=== PATIENT | male | born 1985 | race Caucasian/White ===

== ENCOUNTER 2020-06-02 12:36 | Emergency (ER) | payer OTHER ==
[~2020-06-02] VITALS: Ht 190.5 cm; Wt 122.5 kg
[2020-06-02 12:40] VITALS: BP 137/88
--- NOTE | 2020-06-02 12:40 | NUR ---
ED Nurse Note: Patient from home and brought in by RA [id number] due to auditory hallucinations startesd around 2am this morning. Pt takes seroquel bur ran out of clozapine x 1 week. Denies SI. AAO x4, ambulatory with non labored breathing. Pt is noted to be diaphoretic. HR 134.
--- NOTE | 2020-06-02 12:40 | NUR ---
ED Nurse Note: Belongings placed on psych locker #2.
--- NOTE | 2020-06-02 12:55 | Emergency Room Report ---
History of Present Illness General Chief Complaint: Behavioral Complaint Source: Patient (Brendon Rosado MD) Present Illness HPI Disclaimer: Please note that this report is being documented using [employer] technology. This can lead to erroneous entry secondary to incorrect i nterpretation by the dictating instrument. HPI: 34-year-old male presents for evaluation of auditory hallucination. He has a history of schizoaffective disorder and was on clozapine for several weeks after recent stay in psychiatric hospital. He ran out 5 days ago. Supposed get a new prescription tomorrow. He is hearing loud voices talking to themselves telling him bad things which he will not elaborate on. Denies suicidality, homicidality. Has not attempted to harm himself or others. Denies other i ngestions. PMH: Schizoaffective disorder PSH: Reviewed Allergies: Reviewed Social Hx: Reviewed (Brendon Rosado MD) Allergies: Coded Allergies: No Known Allergies (Unverified , 06/02/20) COVID-19 Screening Contact w/high risk pt: No Experienced COVID-19 symptoms?: No COVID-19 Testing performed JOB PRINTER: No (Brendon Rosado MD) Nursing Documentation-PMH Past Medical History: No History, Except For History Of Psychiatric Problem: Yes (Brendon Rosado MD) Review of Systems All Other Systems: negative except mentioned in HPI (Brendon Rosado MD) Physical Exam Vital Signs Date Time Temp Pulse Resp B/P (MAP) Pulse Ox O2 Delivery O2 Flow Rate FiO2 06/02/20 12:30 98.2 140 22 110/90 (97) 98 Room Air General: Awake and alert, anxious appearing HEENT: NC/AT. EOMI. Cardiovascular: Tachycardic. S1 and S2 normal. No murmur appreciated Resp: Normal work of breathing. No cough, wheezing or crackles appreciated Abdomen: Abdomen is soft, nondistended. Nontender Skin: Intact. No abrasions, laceration or rash over the exposed skin MSK: Normal tone and bulk. Moving all extremities. No obvious deformity. Neuro: Awake and alert. Mentating appropriately. Pleasant and cooperative. Reports auditory hallucinations (Brendon Rosado MD) Medical Decision Making Diagnostic Impression: Primary Impression: Substance abuse ER Course Is a 34-year-old male history of schizoaffective disorder who ran out of clozapine 5 days ago presenting for worsening auditory hallucinations. Denies SI/HI. Home medications provided. Patient's urine tox returned positive for amphetamines which he admits using. Labs are otherwise within normal limits. Patient is requesting transfer to a psychiatric facility. He is medically cleared for psych eval. Will arrange placement. Laboratory Tests Test 06/02/20 12:50 06/02/20 13:35 White Blood Count 7.3 K/UL (4.8-10.8) Red Blood Count 5.20 M/UL (4.70-6.10) Hemoglobin 15.9 G/DL (14.2-18.0) Hematocrit 45.6 % (42.0-52.0) Mean Corpuscular Volume 88 FL (80-99) Mean Corpuscular Hemoglobin 30.5 PG (27.0-31.0) Mean Corpuscular Hemoglobin Concent 34.8 G/DL (32.0-36.0) Red Cell Distribution Width 12.3 % (11.6-14.8) Platelet Count 255 K/UL (150-450) Mean Platelet Volume 7.6 FL (6.5-10.1) Neutrophils (%) (Auto) 76.8 % (45.0-75.0) H Lymphocytes (%) (Auto) 16.8 % (20.0-45.0) L Monocytes (%) (Auto) 5.0 % (1.0-10.0) Eosinophils (%) (Auto) 0.3 % (0.0-3.0) Basophils (%) (Auto) 1.0 % (0.0-2.0) Sodium Level 142 MMOL/L (136-145) Potassium Level 3.9 MMOL/L (3.5-5.1) Chloride Level 103 MMOL/L (98-107) Carbon Dioxide Level 23 MMOL/L (21-32) Anion Gap 16 mmol/L (5-15) H Blood Urea Nitrogen 12 mg/dL (7-18) Creatinine 1.1 MG/DL (0.55-1.30) Estimated Glomerular Filtration Rate > 60 mL/min (>60) Glucose Level 145 MG/DL (74-106) H Calcium Level 9.1 MG/DL (8.5-10.1) Total Bilirubin 0.9 MG/DL (0.2-1.0) Aspartate Amino Transferase (AST) 48 U/L (15-37) H Alanine Aminotransferase (ALT) 51 U/L (12-78) Alkaline Phosphatase 104 U/L (46-116) Total Protein 7.5 G/DL (6.4-8.2) Albumin 4.1 G/DL (3.4-5.0) Globulin 3.4 g/dL Albumin/Globulin Ratio 1.2 (1.0-2.7) Salicylates Level 1.7 ug/mL (2.8-20) L Acetaminophen Level < 2 MCG/ML (10-30) L Serum Alcohol < 3 mg/dL Urine Color Yellow Urine Appearance Clear Urine pH 7 (4.5-8.0) Urine Specific [place] 1.015 (1.005-1.035) Urine Protein Negative (NEGATIVE) Urine Glucose (UA) Negative (NEGATIVE) Urine Ketones 1+ (NEGATIVE) H Urine Blood Negative (NEGATIVE) Urine Nitrite Negative (NEGATIVE) Urine Bilirubin Negative (NEGATIVE) Urine Urobilinogen Normal MG/DL (0.0-1.0) Urine Leukocyte Esterase Negative (NEGATIVE) Urine Opiates Screen Negative (NEGATIVE) Urine Barbiturates Screen Negative (NEGATIVE) Phencyclidine (PCP) Screen Negative (NEGATIVE) Urine Amphetamines Screen Positive (NEGATIVE) H Urine Benzodiazepines Screen Negative (NEGATIVE) Urine Cocaine Screen Negative (NEGATIVE) Urine Marijuana (THC) Screen Negative (NEGATIVE) Microbiology Date/Time Source Procedure Growth Status 06/02/20 12:48 Nasopharynx SARS-CoV-2 RdRp Gene Assay - Final Complete (Brendon Rosado MD) ER Course Patient was endorsed me by Dr. Rosado. Patient had been medically cleared and was pending psychiatric placement. Laboratory testing did show some evidence of substance abuse. Patient was medically cleared and was accepted at [place] for voluntary psychiatric evaluation. Labs Test 06/02/20 12:50 06/02/20 13:35 White Blood Count 7.3 K/UL (4.8-10.8) Red Blood Count 5.20 M/UL (4.70-6.10) Hemoglobin 15.9 G/DL (14.2-18.0) Hematocrit 45.6 % (42.0-52.0) Mean Corpuscular Volume 88 FL (80-99) Mean Corpuscular Hemoglobin 30.5 PG (27.0-31.0) Mean Corpuscular Hemoglobin Concent 34.8 G/DL (32.0-36.0) Red Cell Distribution Width 12.3 % (11.6-14.8) Platelet Count 255 K/UL (150-450) Mean Platelet Volume 7.6 FL (6.5-10.1) Neutrophils (%) (Auto) 76.8 % (45.0-75.0) Lymphocytes (%) (Auto) 16.8 % (20.0-45.0) Monocytes (%) (Auto) 5.0 % (1.0-10.0) Eosinophils (%) (Auto) 0.3 % (0.0-3.0) Basophils (%) (Auto) 1.0 % (0.0-2.0) Sodium Level 142 MMOL/L (136-145) Potassium Level 3.9 MMOL/L (3.5-5.1) Chloride Level 103 MMOL/L (98-107) Carbon Dioxide Level 23 MMOL/L (21-32) Anion Gap 16 mmol/L (5-15) Blood Urea Nitrogen 12 mg/dL (7-18) Creatinine 1.1 MG/DL (0.55-1.30) Estimat Glomerular Filtration Rate > 60 mL/min (>60) Glucose Level 145 MG/DL (74-106) Calcium Level 9.1 MG/DL (8.5-10.1) Total Bilirubin 0.9 MG/DL (0.2-1.0) Aspartate Amino Transf (AST/SGOT) 48 U/L (15-37) Alanine Aminotransferase (ALT/SGPT) 51 U/L (12-78) Alkaline Phosphatase 104 U/L (46-116) Total Protein 7.5 G/DL (6.4-8.2) Albumin 4.1 G/DL (3.4-5.0) Globulin 3.4 g/dL Albumin/Globulin Ratio 1.2 (1.0-2.7) Salicylates Level 1.7 ug/mL (2.8-20) Acetaminophen Level < 2 MCG/ML (10-30) Serum Alcohol < 3 mg/dL Urine Color Yellow Urine Appearance Clear Urine pH 7 (4.5-8.0) Urine Specific [place] 1.015 (1.005-1.035) Urine Protein Negative (NEGATIVE) Urine Glucose (UA) Negative (NEGATIVE) Urine Ketones 1+ (NEGATIVE) Urine Blood Negative (NEGATIVE) Urine Nitrite Negative (NEGATIVE) Urine Bilirubin Negative (NEGATIVE) Urine Urobilinogen Normal MG/DL (0.0-1.0) Urine Leukocyte Esterase Negative (NEGATIVE) Urine Opiates Screen Negative (NEGATIVE) Urine Barbiturates Screen Negative (NEGATIVE) Phencyclidine (PCP) Screen Negative (NEGATIVE) Urine Amphetamines Screen Positive (NEGATIVE) Urine Benzodiazepines Screen Negative (NEGATIVE) Urine Cocaine Screen Negative (NEGATIVE) Urine Marijuana (THC) Screen Negative (NEGATIVE) (Ganga Bush MD) Last Vital Signs Date Time Temp Pulse Resp B/P (MAP) Pulse Ox O2 Delivery O2 Flow Rate FiO2 06/02/20 12:30 98.2 140 22 110/90 (97) 98 Room Air (Brendon Rosado MD) Status: improved (Ganga Bush MD) Disposition: PSYCH HOSP/UNIT Condition: Stable Brendon Rosado MD Jun 02, 2020 12:55 Ganga Bush MD Jun 02, 2020 20:38
--- NOTE | 2020-06-02 13:35 | NUR ---
ED Nurse Note: Collected urine then sent.
[2020-06-02 13:37] LABS: EOSINOPHILS % (AUTO) 0.3 % (0.0-3.0); HEMATOCRIT 45.6 % (42.0-52.0); HEMOGLOBIN 15.9 G/DL (14.2-18.0); LYMPHOCYTES % (AUTO) 16.8 % (20.0-45.0); MEAN CORPUSCULAR VOLUME 88 FL (80-99); NEUTROPHILS % (AUTO) 76.8 % (45.0-75.0); PLATELET COUNT 255 K/UL (150-450); RED CELL DISTRIBUTION WIDTH 12.3 % (11.6-14.8); WHITE BLOOD COUNT 7.3 K/UL (4.8-10.8)
[2020-06-02 13:45] LABS: ANION GAP 16 mmol/L (5-15); BLOOD UREA NITROGEN 12 mg/dL (7-18); CALCIUM 9.1 MG/DL (8.5-10.1); CARBON DIOXIDE 23 MMOL/L (21-32); CHLORIDE 103 MMOL/L (98-107); CREATININE 1.1 MG/DL (0.55-1.30); POTASSIUM 3.9 MMOL/L (3.5-5.1); SODIUM 142 MMOL/L (136-145)
[2020-06-02 13:49] LABS: ALANINE AMINOTRANSFERASE 51 U/L (12-78); ALBUMIN 4.1 G/DL (3.4-5.0); ALBUMIN/GLOBULIN RATIO 1.2 (1.0-2.7); ALKALINE PHOSPHATASE 104 U/L (46-116); ASPARTATE AMINO TRANSFERASE 48 U/L (15-37); BILIRUBIN,TOTAL 0.9 MG/DL (0.2-1.0)
[2020-06-02] MEDS ORDERED: LORazepam Inj 2mg/ml 1ml IV ONE (14:15)
[2020-06-02 15:15] VITALS: BP 135/82
--- NOTE | 2020-06-02 15:25 | NUR ---
HAND-OFF: Report given to Patrice REA.
--- NOTE | 2020-06-02 15:25 | NUR ---
ED Nurse Note: Received report from Dee REA. Patient sitting in bed, AxO x 4, calm and cooperative, states he feels anxious. Patient has flat affect, no s/s of acute distress.
--- NOTE | 2020-06-02 16:47 | NUR ---
ED Nurse Note: ASSESS THE PT. REGARDING HIS AUDITORY HALLUCINATIONS. PER PT. HE THINKS THAT WHEN PEOPLE LAUGH AROUND HIM, HE THINKS IT INVOLVES HIM. PT. ALSO MENTIONED THAT THE VOICES ARE SAYING THAT HE SHOULD BE BETTER OFF IF NOT THE PEOPLE AROUND HIM ARE GOING TO KILL HIM
[2020-06-02 17:10] VITALS: BP 131/81
--- NOTE | 2020-06-02 18:05 | NUR ---
ED Nurse Note: Patient appears anxious, states he hears people talking about him and states he is paranoid. Patient requested Ativan d/t feeling agitated. Informed ERMD.
--- NOTE | 2020-06-02 18:20 | NUR ---
ED Nurse Note: Verbal order received from ERMD for Ativan IV 1mg once
[2020-06-02] MEDS ORDERED: LORazepam Inj 2mg/ml 1ml ONE (18:21)
--- NOTE | 2020-06-02 18:25 | NUR ---
ED Nurse Note: Patient refused IV Ativan, states he prefers oral route. Wasted remaining 1 mg Ativan IV lovely/ Nicolette REA
[2020-06-02] MEDS ORDERED: LORazepam 1mg tab ORAL ONE (18:30)
--- NOTE | 2020-06-02 19:47 | NUR ---
HAND-OFF: Report given to Rachel REA at [facility].
[2020-06-02 20:16] LABS: APPEARANCE,URINE CLEAR; BILIRUBIN, URINE NEGATIVE (NEGATIVE); COLOR,URINE YELLOW; GLUCOSE, URINE (UA) NEGATIVE (NEGATIVE); KETONES,URINE 1+ (NEGATIVE); LEUKOCYTE ESTERASE ,URINE NEGATIVE (NEGATIVE); NITRITE,URINE NEGATIVE (NEGATIVE); PH,URINE 7 (4.5-8.0); PROTEIN,URINE NEGATIVE (NEGATIVE); UROBILINOGEN,URINE NORMAL MG/DL (0.0-1.0)
--- NOTE | 2020-06-02 20:30 | NUR ---
Nurse Note: UA added and awaiting results. Pt calm, coopeartive, ambualtory. no signs of distress noted. SLIV LT AC; patent. Bahvioral safety precautions continued. All safety measures met; will continue to monitor
--- NOTE | 2020-06-02 21:24 | NUR ---
[facility] ambulance is here now to transport patient to [facility].
[2020-06-02 21:29] VITALS: BP 138/88
[2020-06-02 21:30] VITALS: BP 128/88
--- NOTE | 2020-06-02 21:30 | NUR ---
ER DISCHARGE NOTE: Patient is cleared to be discharged per ERMD. Pt is aox4, on room air, with stable vital signs. Pt was given dc instructions to ambulance personnal. Pt was able to verbalize understanding. Pt id band and iv site removed without complications. Pt is able to ambulate with steady gait. Pt took all belongings.
== END 2020-06-02 21:30 ==
LOC: EDBD 12:36 → EMR 13:26
DX: F19.10 Other psychoactive substance abuse, uncomplicated (principal); F15.90 Other stimulant use, unspecified, uncomplicated; F25.9 Schizoaffective disorder, unspecified; R00.0 Tachycardia, unspecified
CPT/HCPCS: 36415; 80053; 80307; 81003; 85025; 96374; G0480; G0481; U0002; Z7502; 99284